=== PATIENT | female | born 1995 | race Caucasian/White ===

== ENCOUNTER 2025-01-06 00:33 | Emergency (ER) | payer BC, SELFPAY ==
[2025-01-06 00:40] VITALS: BP 117/69; PULSE 107; TEMP 37.6; O2SAT 97; BMI 27.1
[2025-01-06 00:47] VITALS: O2SAT 97
[2025-01-06 01:19] LABS: Influenza Virus A Antigen Positive; Influenza Virus B Antigen Negative; Internal Control Within Normal Limits
[2025-01-06 01:20] LABS: Internal Control Within Normal Limits; SARS-CoV-2 Ag NEGATIVE (NEGATIVE)
[2025-01-06 01:58] LABS: Bilirubin Urine NEGATIVE (NEGATIVE); Blood Urine SMALL (NEGATIVE); Clarity Urine CLEAR (CLEAR); Color Urine LT. YELLOW (YELLOW); Glucose Urine UA NEGATIVE (NEGATIVE); Ketones Urine NEGATIVE (NEGATIVE); Leukocyte Esterase Urine NEGATIVE (NEGATIVE); Nitrite Urine NEGATIVE (NEGATIVE); Protein Urine NEGATIVE (NEG/TRACE); Specific Gravity Urine <=1.005 (1.005-1.025); Urobilinogen Urine 0.2 EU/dL (0.2-1.0)
[2025-01-06 02:02] LABS: HCG Qualitative Urine* NEGATIVE (NEGATIVE); Internal Control Within Normal Limits
[2025-01-06 02:05] LABS: Bacteria Urine TRACE #/HPF (NONE SEEN); Cast Seen? NONE SEEN #/LPF (NONE SEEN); Crystals Seen? None Seen #/HPF (None Seen); Mucus Urine NONE SEEN (NONE SEEN); RBC Urine NONE SEEN #/HPF (0-2); Squamous Epithelial Cell Urine FEW #/LPF (NONE/RARE); WBC Urine 0-2 #/HPF (NONE SEEN)
--- NOTE | 2025-01-06 02:16 | ED_ITS ---
HPI HPI - General Adult General Chief complaint: Upper Respiratory Infection Stated complaint: URI SYMPTOMS Time Seen by Provider: 01/06/25 00:59 Source: patient Mode of arrival: walk-in Limitations: no limitations History of Present Illness HPI narrative: Patient is a 29-year-old female who is presenting to the ER today with chief complaint of fever, cough, congestion, mild shortness of breath after she is coughing. Patient just returned back from [place]. Patient is on no control, no smoking, no history of blood clots. Patient traveled by plane with her mother. 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 No sick contacts that patient knows of. Patient father patient up from the airport and mother, and they came directly to the ER secondary to patient's flulike symptoms. Patient did not have a flu shot this year. No abdominal pain nausea or vomiting. No diarrhea. Patient has been having increased urinary frequency. She is not diabetic. Patient says she has not been drinking much liquids in the last day or 2 if she should be. Patient has no rash. Patient does have some burn from [place]. Patient thought her fever the last couple days could have been from her sunburn. No other acute complaints. Patient use mother's inhaler to help break down the cough which did help loosen the cough after she use all her albuterol inhaler All systems are negative except as noted/marked. All systems reviewed and otherwise negative. Nurses note and vital signs reviewed and patient is not hypoxic. Mother and father at bedside General: The patient appears well and in no apparent distress. Patient is resting comfortably on cart. Patient is not toxic, lethargic, or listless Skin: Warm, dry, no pallor noted. There is no rash noted. No petechiae, purpura. Patient has diffuse sunburn, to face, upper shoulders, and body where bathing suit was not being worn. Patient does have a few clear blisters, no other acute findings. This has been going on for the past 2 or 3 days. Then they were acute today. No secondary signs of infection. Head: Normocephalic, atraumatic Eye: Normal conjunctiva, no drainage, EOMI. PERRL Ears, Nose, Mouth, and Throat: oral mucosa is moist. Patient has no unilateral swelling, no obvious signs of peritonsillar abscess, no posterior pharyngeal petechiae or exudate. Airways patent. Patient tolerating secretions well. No trismus. Patient has clear drainage noted to the posterior pharynx. Patient has mild cobblestoning to the posterior pharynx. No bilateral anterior or posterior cervical lymphadenopathy. Nares patent. Mouth without vesicles. Cardiovascular: Regular Rate and Rhythm, no murmur, gallop, rub Respiratory: Patient is in no distress, no accessory muscle use, lungs are clear to auscultation, no wheezing, rales or rhonchi. Patient breath sounds coarse but clear bilateral. Back: non-tender, no CVA tenderness bilaterally to percussion. No CT LS midline pain GI: no tenderness Musculoskeletal: Patient has full range of motion of all of the extremities, no motor, sensory, or focal neurological deficits Neurological: A&O x4, normal speech Psychiatric: Cooperative Related Data Previous Rx's ?Medication ?Instructions ?Recorded albuterol sulfate 90 mcg/actuation 2 inh inhalation Q4H PRN shortness 01/06/25 aerosol inhaler of breath or wheezing 7 days #8.5 grams fmigkzebqnbvwtr-cmurmkyapdkjjbd-KR 10 ml PO Q6H PRN cold symptoms 01/06/25 2 mg-30 mg-10 mg/5 mL oral syrup #200 mL (Bromfed DM) ondansetron 4 mg disintegrating 4 mg PO Q4H PRN nausea and 01/06/25 tablet vomiting 3 days #6 tabs oseltamivir 75 mg capsule (Tamiflu) 75 mg PO BID 5 days #10 caps 01/06/25 Allergies Allergy/AdvReac Type Severity Reaction Status Date / Time Penicillins Allergy Mild Rash Verified 01/06/25 00:40 Opioid HPI Opioid Management Most Recent Opioid Data: No Data to Display PFSH PFSH Social History Little interest or pleasure in doing things: not at all Feeling down, depressed, or hopeless: not at all Exam Constitutional Vital Signs, click to edit/add: Last Vital Signs Temp 99.7 F 01/06/25 00:40 Pulse 102 H 01/06/25 02:21 Resp 14 01/06/25 02:21 BP 117/69 01/06/25 02:21 Pulse Ox 97 01/06/25 02:21 O2 Del Method Room Air 01/06/25 02:21 Course Vital Signs Vital signs: Vital Signs Temperature 99.7 F 01/06/25 00:40 Pulse Rate 107 H 01/06/25 00:40 Respiratory Rate 18 01/06/25 00:40 Blood Pressure 117/69 01/06/25 00:40 Pulse Oximetry 97 01/06/25 00:40 Oxygen Delivery Method Room Air 01/06/25 00:40 Temperature 99.7 F 01/06/25 00:40 Pulse Rate 102 H 01/06/25 02:21 Respiratory Rate 14 01/06/25 02:21 Blood Pressure 117/69 01/06/25 02:21 Pulse Oximetry 97 01/06/25 02:21 Oxygen Delivery Method Room Air 01/06/25 02:21 Medical Decision Making MDM Narrative Medical decision making narrative: Patient lungs are clear. Influenza A was positive, COVID-negative. Secondary to increased urinary frequency, urine was tested. Patient not , no g lucose, no signs of obvious infection. Patient was sent home a prescription for albuterol inhaler, Bromfed, Zofran, and Tamiflu. Work note was given. Education on treating symptoms [id number] was discussed at bedside and on discharge paper. Lab Data Lab results reviewed: Yes I reviewed the patient's lab results Labs: Lab Results 01/06/25 01/06/25 Range/Units 00:51 01:50 Urine Color Lt. yellow (YELLOW) Urine Clarity Clear (CLEAR) Urine pH 6.0 (5.0-9.0) Ur Specific [place] <=1.005 A (1.005-1.025) Urine Protein Negative (NEG/TRACE) mg/dL Urine Glucose (UA) Negative (NEGATIVE) mg/dL Urine Ketones Negative (NEGATIVE) mg/dL Urine Occult Blood Small A (NEGATIVE) Urine Nitrite Negative (NEGATIVE) Urine Bilirubin Negative (NEGATIVE) Urine Urobilinogen 0.2 (0.2-1.0) EU/dL Ur Leukocyte Esterase Negative (NEGATIVE) Urine RBC None seen (0-2) #/HPF Urine WBC 0-2 A (NONE SEEN) #/HPF Ur Squamous Epith Cells Few A (NONE/RARE) #/LPF Urine Crystals None seen (None Seen) #/HPF Urine Bacteria Trace A (NONE SEEN) #/HPF Urine Casts None seen (NONE SEEN) #/LPF Urine Mucus None seen (NONE SEEN) Urine HCG, Qual Negative (NEGATIVE) Influenza Type A Ag Positive A Influenza Type B Ag Negative SARS-CoV-2 Ag (CV2AG) Negative (NEGATIVE) Discharge Plan Discharge Stand Alone Forms: Work/School Release Chief Complaint: Upper Respiratory Infection Clinical Impression: Influenza A Patient Disposition: Home, Self-Care Time of Disposition Decision: 02:15 Condition: Fair Mode of Transportation: Private Vehicle Prescriptions / Home Meds: New oseltamivir [Tamiflu] 75 mg capsule 75 mg PO BID 5 Days Qty: 10 0RF ondansetron 4 mg tablet,disintegrating 4 mg PO Q4H PRN (Reason: nausea and vomiting) 3 Days Qty: 6 0RF albuterol sulfate 90 mcg/actuation HFA aerosol inhaler 2 inh inhalation Q4H PRN (Reason: shortness of breath or wheezing) 7 Days Qty: 8.5 0RF pminjrnucvqojbl-vmkmaldzl-LC [Bromfed DM] 2-30-10 mg/5 mL syrup 10 ml PO Q6H PRN (Reason: cold symptoms) Qty: 200 0RF Print Language: [place]an Instructions: Influenza (ED) Additional Instructions: Increase fluids at home, Gatorade, Powerade, or water. Alternate using DayQuil, NyQuil, and Flonase. Add Mucinex as well as needed. Alternate Tylenol and Motrin every 4 hours to help with fever control, body aches or joint pain. Use jmel-tno-[id number] vitamin C, vitamin D3, and zinc to help fight infection and help with her immune system. Referrals: FLEX BARNES [Primary Care Provider] - 1 week Discharge Date/Time: 01/06/25 02:23
[2025-01-06 02:21] VITALS: BP 117/69; PULSE 102; O2SAT 97
== END 2025-01-06 02:23 | disposition home or self-care (01) ==
PROVIDERS: Emergency Provider Emergency Medicine; PCP Family Medicine
DX: J10.1 Influenza due to other identified influenza virus with other respiratory manifestations (principal); R06.02 Shortness of breath
CPT/HCPCS: 81001; 84703; 87804; 87811; 99283